=== PATIENT | male | born 1955 | race Caucasian/White ===

== ENCOUNTER 2022-06-03 09:31 | Outpatient (CLI) | payer MEDICARE, SELFPAY ==
[2022-06-03 13:25] LABS: Albumin* 4.5 g/dL (3.3-5.0); Chloride* 105 mmol/L (96-114); Potassium* 5.2 mmol/L (3.6-5.1); Sodium* 141 mmol/L (135-149)
[2022-06-03 13:27] LABS: Cholesterol* 161 mg/dL (90-199)
[2022-06-03 13:28] LABS: Alanine Aminotransferase* 26 U/L (4-50); Alkaline Phosphatase* 87 U/L (40-150); Aspartate Amino Transferase* 30 U/L (12-35); Bilirubin Total* 0.6 mg/dL (0.1-1.5); Blood Urea Nitrogen* 15 mg/dL (7-30); Calcium* 9.8 mg/dL (8.4-10.6); Carbon Dioxide* 29 mmol/L (20-32); Creatinine* 0.8 mg/dL (0.5-1.5); Estimated Glomerular Filt Rate 98 ml/min; Glucose* 108 mg/dL (60-115); HDL Cholesterol* 39 mg/dL (>=40); LDL Cholesterol Calculated 81 mg/dL (<100); Total Protein* 7.2 g/dL (6.0-8.3); Triglycerides* 203 mg/dL (40-149)
[2022-06-03 13:59] LABS: PSA Screen* 1.68 ng/mL (0.10-4.00)
== END 2022-06-03 09:32 | disposition home or self-care (01) ==
PROVIDERS: PCP Internal Medicine; Visit Provider Internal Medicine
DX: Z00.00 Encounter for general adult medical examination without abnormal findings (principal); E78.5 Hyperlipidemia, unspecified; D36.9 Benign neoplasm, unspecified site; Z12.5 Encounter for screening for malignant neoplasm of prostate
CPT/HCPCS: 80053; 80061; 84153

== ENCOUNTER 2022-07-02 07:06 | Outpatient (CLI) | payer MEDICARE, SELFPAY ==
--- NOTE | 2022-07-02 08:46 | W.ANESCHARGE ---
Anesthesia Charges Start Date/Time Anesthesia Start Date: 07/02/22 Anesthesia Start Time: 08:00 Stop Date/Time Anesthesia Stop Date: 07/02/22 Anesthesia Stop Time: 08:45 Summary Emergency: No
--- NOTE | 2022-07-02 09:07 | W.ANESCHARGE ---
Anesthesia Charges Start Date/Time Anesthesia Start Date: 07/02/22 Anesthesia Start Time: 08:00 Stop Date/Time Anesthesia Stop Date: 07/02/22 Anesthesia Stop Time: 08:45 Summary Emergency: No
== END 2022-07-02 07:07 | disposition home or self-care (01) ==
LOC: OP CLINIC 07:06
PROVIDERS: PCP Internal Medicine; Visit Provider Surgery
DX: Z12.11 Encounter for screening for malignant neoplasm of colon (principal); K57.30 Diverticulosis of large intestine without perforation or abscess without bleeding; K63.5 Polyp of colon; K62.1 Rectal polyp; K64.9 Unspecified hemorrhoids; Z86.010 Personal history of colon polyps
CPT/HCPCS: 00811; 45385

== ENCOUNTER 2023-06-04 10:03 | Outpatient (CLI) | payer MEDICARE, SELFPAY | END 2023-06-04 10:04 | disposition home or self-care (01) | PROVIDERS: PCP Internal Medicine; Visit Provider Internal Medicine | DX: E78.5 Hyperlipidemia, unspecified (principal); Z12.5 Encounter for screening for malignant neoplasm of prostate | CPT/HCPCS: 80053; 80061; 84153 ==

== ENCOUNTER 2024-06-29 08:52 | Outpatient (CLI) | payer OTHER, SELFPAY | END 2024-06-29 08:53 | disposition home or self-care (01) | PROVIDERS: PCP Internal Medicine; Visit Provider Internal Medicine | DX: E78.5 Hyperlipidemia, unspecified (principal); Z12.5 Encounter for screening for malignant neoplasm of prostate; G62.9 Polyneuropathy, unspecified | CPT/HCPCS: 80053; 80061; G0103 ==

== ENCOUNTER 2025-07-05 08:08 | Outpatient (CLI) | payer MEDICARE, SELFPAY | END 2025-07-05 08:09 | disposition home or self-care (01) | PROVIDERS: PCP Internal Medicine; Visit Provider Internal Medicine | DX: E78.5 Hyperlipidemia, unspecified (principal) | CPT/HCPCS: 80053; 80061; G0103 ==

== ENCOUNTER 2025-07-13 06:02 | Day surgery (SDC) | payer MEDICARE, SELFPAY ==
[2025-07-13] VITALS (18 sets, daily range): BP systolic 103–170; BP diastolic 62–100; PULSE 55–87; RESP 16; TEMP 36.1–37; O2SAT 92–97; BMI 31.1
[2025-07-13] MEDS: LACTATED RINGERS 1000 ML 1,000 ML 100 ML IV ×2 (06:10→07:42)
[2025-07-13] MEDS: ACETAMINOPHEN 500 MG TABLET 1000 MG PO (07:01)
[2025-07-13] MEDS: SODIUM CHLORIDE 0.9 % (FLUSH) 10 ML SYRINGE IVF (07:02)
--- NOTE | 2025-07-13 07:07 | W.PM.H&PU ---
History & Physical Update History & Physical Update H&P Reviewed and patient assessed: No changes noted
--- NOTE | 2025-07-13 07:15 | CRLHL7_ITS ---
For Patients: As a result of the Cures Act, medical imaging exams and procedure reports are released immediately into your electronic medical record. You may view this report before your referring provider. If you have questions, please contact your health care provider. Indication: Hip replacement surgery Technique: AP hip fluoroscopic image. Fluoroscopy time 41.5 seconds. Findings/Impression: Hardware from a right total hip arthroplasty is in satisfactory position. Dictated by Felix Koch MD @ 07/13/2025 9:39:52 AM (Electronically Signed)
--- NOTE | 2025-07-13 07:15 | SUR.PREOP ---
TIME?OUT:?0715 PT/Josephine Myers RN/Dr. Gerald MDA?VERIFICATION?OF?SURGICAL?SITE right hip,?PROCEDURE,?AND?CONSENT OBTAINED?PRIOR?TO?INVASIVE?PROCEDURE.
[2025-07-13] MEDS: MIDAZOLAM HCL 1 MG/ML inj IVP (07:16)
[2025-07-13] MEDS: TRANEXAMIC ACID 100 MG/ML INJ 1000 MG IV (07:42)
--- NOTE | 2025-07-13 09:20 | P.ORPRC_ITS ---
Procedure Note Date of procedure: 07/13/25 Procedure: PREOPERATIVE DIAGNOSIS: 1. Right hip osteoarthritis, severe, primary POSTOPERATIVE DIAGNOSIS: 1. Right hip osteoarthritis, severe, primary PROCEDURE: 1. Right total hip arthroplasty-anterior approach 2. 43505 - intraoperative fluoroscopy up to 1 hour. SURGEON: Mor Porter MD. SALES COMMUNICATIONS MANAGER: Cecilio Soni PA-C; MADHAV Vogt - Of note, a skilled social research assistant was critical for this case to aid in patient positioning, tissue retraction, limb manipulation/positioning, and closure. ANESTHESIA: Spinal anesthetic EBL: 200 mL IMPLANTS: DePuy J&J uncemented total hip [place] cup size 56, hole eliminator, +4 neutral liner Actis stem, high offset, size 7 +8.5 mm ceramic 36 mm head COMPLICATIONS: None evident INDICATIONS: The patient is a pleasant 70-year-old male who has experienced severe right hip pain and difficulty bearing weight. Workup included x-rays which revealed severe osteoarthrosis in the hip. Given the deformity, the dysfunction, and the pain, as well as the failure of nonoperative management, recommendation was made for surgery. FINDINGS: Full-thickness chondral loss diffusely throughout the femoral head with some deformity/Flattening to the superior femoral head. Osteophytes on the femoral head/neck junction and perimeter of the acetabulum. Moderate effusion upon entering the joint. 8 mm short preoperatively based on radiographic parameters DESCRIPTION OF PROCEDURE: Following a thorough discussion of risks, benefits, and alternatives consent was obtained and the right hip was marked. The patient was brought to the operating room and placed supine on the operating table. Induction of anesthesia was undertaken. 2 g IV Ancef and 1 g tranexamic acid was administered within 1 hr of incision preoperatively. Proper time-out was performed identifying proper patient, site, procedure. The operative extremity was prepped and draped in the appropriate sterile fashion using ChloraPrep after the patient was positioned on the [place] table with head in neutral alignment and all bony prominences well padded. C-arm fluoroscopic imaging was utilized to confirm proper pelvis rotation and position, and to get true AP films of both the contralateral left, and the affected right hip. This is for comparison. A longitudinal incision was made starting approximately 1 cm distal to the ASIS, and 2-3 cm lateral. The incision was extended distally aiming toward the fibular head. Sharp incision through skin and bovie cautery through the subcutaneous tissue allowed identification of the TFL fascia. This was sharply divided, and the fascia bluntly released from the muscle fibers as we dissected medial. Upon coming to the medial border, we were able to retract the TFL laterally, and penetrated the deeper fascia and identify the crossing circumflex vessels. These were ligated/cauterized. The rectus was elevated from the capsule, and retractors placed laterally and medially along the femoral neck to help with visualization of the capsule. We then performed an inverted T capsulotomy. The capsule was tagged for later repair. Retractors were placed inside the capsule. The femoral neck was visualized after releasing medially down to the lesser trochanter, along the saddle laterally, and up onto the acetabulum. The femoral neck cut was made in line with our preoperative templating. The head was removed in a single piece, and sized. We turned our attention to acetabular preparation. Initially, the labrum was resected from around the perimeter, the pulvinar was excised, allowing us to visualize the false wall. We started the reaming with a 43 mm reamer. This was medialized down to the true wall. We then enlarged our reamers sequentially up to one size less than the selected cup size. We trialed at the same size and found it to have an excellent fit. The selected cup was then opened, inserted, and impacted in line with the goal of 40? of abduction, and 20-25? of anteversion. This was confirmed on C-arm fluoroscopic imaging to be in the appr opriate/goal position. Once the cup was placed we placed a hole eliminator and a liner consistent with preop planning. Attention was turned to the femoral preparation. The limb was extended, external ly rotated, and adducted. The posteromedial capsule was released, as retractors were placed allowing excellent access to the proximal femur. Initially a experimental box tester was followed by canal finder followed by various broaches. We broached sequentially up to the size noted above, found it to have excellent rotational control, and trialing various heads and necks, revealed that appropriate neck offset, and the above noted head size provided the greatest stability, and gnosticism of length, and offset. C-arm fluoroscopic imaging confirmed position of the stem, as well as leg lengths, which were compared with the pre procedure all fluoroscopic images. Trial implants were removed, the real femoral stem inserted, as was the appropriate head. After reducing, the leg was placed through range of motion and stability was confirmed anterior, posterior, and lateral. A 3 min Betadine soak was then performed, and thorough irrigation with normal saline followed. Closure of the capsule was performed with #1 PDS. Bleeding was confirmed to be controlled at this stage, and the TFL fascia was closed with #0 strata fix. Subcutaneous, and subcuticular closure was performed with 2-0 Stratafix and 4-0 Stratafix, respectively. Dressings were applied, and the patient was awoken from anesthesia and transferred the PACU in stable condition. A skilled social research assistant was critical for this case to aid in patient positioning, tissue retraction, acetabular and proximal femoral exposure, limb manipulation/positioning, dislocation/relocation, patient safety, and closure. PLAN: 1. Weight bear as tolerated operative extremity. 2. 23 hr perioperative antibiotics. 3. Ice. 4. PT/OT consults for ambulation assistance/mobility education. 5. Social work consult for discharge planning. 6. DVT prophylaxis with at SCDs and Xarelto x5 days followed by aspirin for a total of 1 month.
--- NOTE | 2025-07-13 10:01 | CRLHL7_ITS ---
For Patients: As a result of the Cures Act, medical imaging exams and procedure reports are released immediately into your electronic medical record. You may view this report before your referring provider. If you have questions, please contact your health care provider. Indication: Postop right total hip arthroplasty Technique: One view of the pelvis, one view of the right hip Comparison: Right hip radiographs 03/09/2025. Findings/Impression: Postsurgical changes from interval right total hip arthroplasty in appropriate alignment without immediate complication. There is expected adjacent postsurgical soft tissue gas. Unchanged appearance of longstanding left hip arthroplasty. No acute fracture. Dictated by Susie Urbina MD @ 07/15/2025 11:52:00 AM (Electronically Signed)
--- NOTE | 2025-07-13 10:12 | P.ANES_ITS ---
Anesthesia Charges Start Date/Time Anesthesia Start Date: 07/13/25 Anesthesia Start Time: 07:25 Stop Date/Time Anesthesia Stop Date: 07/13/25 Anesthesia Stop Time: 10:03 Coding CPT Codes CPT Codes: ANESTH HIP ARTHROPLASTY - 36343 ([id number]) P2 - PATIENT W/MILD SYST DISEASE, QK - AUTOMOBILE AND PROPERTY UNDERWRITER 2-4 CNCRNT ANES PROC, QX - LICENSED ESTHETICIAN SVC W/ MD MED DIRECTION
--- NOTE | 2025-07-13 10:12 | W.ANESCHARGE ---
Anesthesia Charges Start Date/Time Anesthesia Start Date: 07/13/25 Anesthesia Start Time: 07:25 Stop Date/Time Anesthesia Stop Date: 07/13/25 Anesthesia Stop Time: 10:03 Coding CPT Codes CPT Codes: ANESTH HIP ARTHROPLASTY - 16207 ([id number]) P2 - PATIENT W/MILD SYST DISEASE, QK - BREAST SPLITTER 2-4 CNCRNT ANES PROC, QX - DIRECTOR CALL SVC W/ MD MED DIRECTION
--- NOTE | 2025-07-13 10:38 | P.ANES_ITS ---
Anesthesia Charges Start Date/Time Anesthesia Start Date: 07/13/25 Anesthesia Start Time: 07:25 Stop Date/Time Anesthesia Stop Date: 07/13/25 Anesthesia Stop Time: 10:03 Coding CPT Codes CPT Codes: ANESTH HIP ARTHROPLASTY - 40734 ([id number]) QK - TRANSLATOR/INTERPRETER 2-4 CNCRNT ANES PROC, QX - CAMOUFLAGE ASSEMBLER SVC W/ MD MED DIRECTION, P2 - PATIENT W/MILD SYST DISEASE
--- NOTE | 2025-07-13 10:38 | W.ANESCHARGE ---
Anesthesia Charges Start Date/Time Anesthesia Start Date: 07/13/25 Anesthesia Start Time: 07:25 Stop Date/Time Anesthesia Stop Date: 07/13/25 Anesthesia Stop Time: 10:03 Coding CPT Codes CPT Codes: ANESTH HIP ARTHROPLASTY - 48374 ([id number]) QK - MOBILE MARKETING SPECIALIST 2-4 CNCRNT ANES PROC, QX - BARREL CENTERER SVC W/ MD MED DIRECTION, P2 - PATIENT W/MILD SYST DISEASE
--- NOTE | 2025-07-13 10:38 | W.PM.NB ---
Nerve Block Nerve Block Time Seen by Provider: 07:20 Date Seen: 07/13/25 Type of block requested by surgeon for post-operative analgesia: MARY ANNE/LFCN Time out performed: Yes Verification of patient name: Yes Verification of date of : Yes Site marking: site marked Name of person performing procedure: Gerald Continuous monitoring Was continuous monitoring of O2 sat, B/P, menagerie caretaker, recorded every 15 minutes?: Yes Procedure Checklist: sterile prep, needles and gloves Ultrasound guided. Images saved: Yes Medications given in 5ml increments after negative aspiration: Ropivicaine %: 0.5 mL: 30 Needle gauge: 20 Precedex (mcg): 25 Patient tolerated procedure well: Yes Additional comments: Needle noted below psoas tendon needle noted adjacent to LFCN Block Charges Block Charge (with Pro Fee): Other Periph Nerve Block Use of Ultrasound Machine for Block: Yes- US Guidance/pain block
[2025-07-13] MEDS: IBUPROFEN 200 MG TABLET 600 MG PO (12:02)
--- NOTE | 2025-07-13 14:51 | SUR.PHASEII ---
1445: Patient states his left eye feels watery and grainy. Pt has no concerns but wanted it noted. PAtient to monitor and says he can rinse it out at home. PAtient to restroom via wheelchair. Patient voided. Patient discharged to home via wheelchair.
== END 2025-07-13 14:53 | disposition home or self-care (01) ==
LOC: OR 06:02
PROVIDERS: PCP Internal Medicine; Visit Provider Orthopaedic Surgery Sports Medicine
PROC: (CPT 27130; principal; 2025-07-13 07:15)
DX: M16.11 Unilateral primary osteoarthritis, right hip (principal); G89.18 Other acute postprocedural pain
CPT/HCPCS: 27130; 01214; 36415; 64450; 73501; 76000; 76942; 86850; 86870; 86880; 86900; 86901; 86905; 86906; 97110; 97116; 97161; 97165; 97530; 97535; A9270; C1776; J0690; J1100; J2250; J2371; J2405; J2704; J2795; J3010; J7120

== ENCOUNTER 2025-08-17 11:15 | Outpatient (RCR) | payer MEDICARE, SELFPAY | END 2025-08-17 15:22 | disposition home or self-care (01) | PROVIDERS: PCP Internal Medicine; Visit Provider Orthopaedic Surgery Sports Medicine | DX: Z47.1 Aftercare following joint replacement surgery (principal); Z96.641 Presence of right artificial hip joint; Z51.89 Encounter for other specified aftercare | CPT/HCPCS: 97110; 97140; 97161 ==